=== PATIENT | male | born 1960 | race Caucasian/White ===

== ENCOUNTER 2016-09-21 11:10 | Emergency (ER) | payer OTHER | END 2016-09-21 12:53 | disposition home or self-care (01) | DX: S61.232A Puncture wound without foreign body of right middle finger without damage to nail, initial encounter (principal); W45.8XXA Other foreign body or object entering through skin, initial encounter; Y92.69 Other specified industrial and construction area as the place of occurrence of the external cause; Y99.0 Civilian activity done for income or pay | CPT/HCPCS: 1040M; 36415; 86706; 86803; 87389; 99282; 99283 ==

== ENCOUNTER 2021-04-10 08:59 | Outpatient (CLI) | payer OTHER | END 2021-04-10 09:00 | disposition home or self-care (01) | LOC: LAB 08:59 | PROVIDERS: ATTEND Family Medicine | DX: Z57.9 Occupational exposure to unspecified risk factor (principal) | CPT/HCPCS: 36415; 80053; 81599; 83655; 85025; 86708; 86709; 93005; 94010 ==